=== PATIENT | female | born 1945 | race Caucasian/White ===

== ENCOUNTER 2018-07-06 12:39 | Emergency (ER) | payer MEDICARE, BC ==
[2018-07-06 12:54] VITALS: BP 122/55
--- NOTE | 2018-07-06 13:31 | UC ---
Upper Extremity HPI - HPI Summary HPI Summary: L upper arm and scapular pain w/ soreness, tingling/numbness x4 weeks. has not lost function and denies edwards. does not recall any event w/ lifting or exercise that caused this. intermittent and resolves on its own, returns on its own. no pattern. - History of Current Complaint Chief Complaint: UCUpperExtremity Stated Complaint: L ARM PAIN Time Seen by Provider: 07/06/18 13:12 Hx Obtained From: Patient ?: No Severity Initially: Mild Severity Currently: Mild Pain Intensity: 4 Pain Scale Used: 0-10 Numeric Character: Aching Associated Signs And Symptoms: Positive: Numbness/Tingling. Negative: Swelling , Redness, Bruising, Weakness - Allergies/Home Medications Allergies/Adverse Reactions: Allergies Allergy/AdvReac Type Severity Reaction Status Date / Time alendronate sodium Allergy Unknown Verified 07/06/18 13:05 [From Fosamax] Reaction Details hydrocodone Allergy Nausea And Verified 07/06/18 13:05 Vomiting indomethacin Allergy Unknown Verified 07/06/18 13:05 Reaction Details meclizine Allergy Unknown Verified 07/06/18 13:05 Reaction Details minocycline Allergy Blurred Verified 07/06/18 13:05 Vision mometasone furoate Allergy See Comment Verified 07/06/18 13:05 [From Nasonex] niacin Allergy Unknown Verified 07/06/18 13:05 Reaction Details oxcarbazepine Allergy Unknown Verified 07/06/18 13:05 [From Trileptal] Reaction Details Penicillins Allergy Rash Verified 07/06/18 13:05 primidone Allergy Unknown Verified 07/06/18 13:05 Reaction Details risedronate sodium Allergy Unknown Verified 07/06/18 13:05 [From Actonel] Reaction Details ropinirole [From Requip] Allergy Unknown Verified 07/06/18 13:05 Reaction Details sertraline Allergy Unknown Verified 07/06/18 13:05 Reaction Details Sulfa (Sulfonamide Allergy Difficulty Verified 07/06/18 13:05 Antibiotics) Breathing zolpidem [From Ambien] Allergy Unknown Verified 07/06/18 13:05 Reaction Details Home Medications: Home Medications DOXYcycline CAP(*) [DOXYcycline 100MG CAP(*)] 50 mg PO BID 07/06/18 [History Confirmed 07/06/18] PMH/Surg Hx/FS Hx/Imm Hx - Additional Past Medical History 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 - Surgical History Surgical History: Yes Surgery Procedure, Year, and Place: 1968 TUBAL LIGATION. LEG VEIN SURGERY [id number]. JOHN EYELID SURGERY, 04/13/14, [facility] – [place] - Family History Known Family History: Positive: Cardiac Disease - Social History Alcohol Use: None Substance Use Type: None Smoking Status (MU): Never Smoked Tobacco - Immunization History Most Recent Influenza Vaccination: 2014 Most Recent Tetanus Shot: unk Most Recent Pneumonia Vaccination: 2014 Review of Systems All Other Systems Reviewed And Are Negative: Yes Constitutional: Positive: Negative Respiratory: Positive: Negative Cardiovascular: Positive: Negative Motor: Negative: Decreased ROM, Weakness Musculoskeletal: Positive: Myalgia - L upper arm, Neurological: Positive: Paresthesia - L upper arm and travels down to forearm. Physical Exam Triage Information Reviewed: Yes Appearance: Well-Appearing Vital Signs: Initial Vital Signs Temp 98.3 F 07/06/18 12:47 Pulse 73 07/06/18 12:47 Resp 20 07/06/18 12:47 BP 122/55 07/06/18 12:47 Pulse Ox 100 07/06/18 12:47 Vital Signs Reviewed: Yes Musculoskeletal Exam: Other - R arm unremarkable. Musculoskeletal: Positive: Strength Intact - L arm, ROM Intact - L wrist, L elbow, L shoulder., No Edema, Other: - Muscle tenderness at supraspinatus area. Neg. Lift off test on L side. L muscular tenderness at L deltoid as well. Neurological: Positive: Muscle Tone Normal - L arm Upper Extremity Course/Dx - Course Course Of Treatment: L cervical radiuclopathy affecting the L upper extremity. No loss of function or ROM. Muscular tension pain at supraspinatus and deltoid: L. I reviewed her MRI from the past and there is significant arthritic changes at C5/C6 level which corresponds to her paresthesia/pain. Recommend her f/u w/ neurosurg for ? injections and re-eval. - Differential Dx/Diagnosis Differential Diagnosis/HQI/PQRI: Arthritis, Strain, Sprain Provider Diagnosis: Cervical radiculopathy Discharge - Sign-Out/Discharge Documenting (check all that apply): Patient Departure All imaging exams completed and their final reports reviewed: No Studies - Discharge Plan Condition: Good Disposition: HOME Patient Education Materials: Cervical Radiculopathy (ED) Referrals: Ilana Cooney MD [Medical Doctor] - Additional Instructions: I reviewed your old MRI and there's a chance that you are experiencing nerve symptoms. Please follow up with neurosurgery - Billing Disposition and Condition Condition: GOOD Disposition: Home
== END 2018-07-06 13:33 | disposition home or self-care (01) ==
LOC: UCEAST 12:39
DX: M54.12 Radiculopathy, cervical region (principal); Z88.8 Allergy status to other drugs, medicaments and biological substances; Z88.5 Allergy status to narcotic agent; Z88.6 Allergy status to analgesic agent; Z88.1 Allergy status to other antibiotic agents; Z88.0 Allergy status to penicillin; Z88.2 Allergy status to sulfonamides
CPT/HCPCS: 99211; G0463

== ENCOUNTER 2023-02-24 06:36 | Observation (INO) ==
[2023-02-24] MEDS ORDERED: Ondansetron 4 mg VIAL 2 MG/ML 2 ml VIAL IV ONE (07:49)
[2023-02-24] MEDS ORDERED: Iodixanol (CONTRAST) 320 MG/ML 100 ML SDV IV ONE (07:52)
[2023-02-24 07:58] LABS: ABS Basophils 0.1 10^3/uL (0.0-0.1); ABS Eosinophils 0.1 10^3/uL (0.0-0.5); ABS Lymphocytes 0.9 10^3/uL (1.0-4.8); ABS Monocytes 0.5 10^3/uL (0.0-0.9); ABS Neutrophils 5.9 10^3/uL (1.5-7.6); Eosinophil % 1.4 %; Hematocrit 39.9 % (35-45); Hemoglobin 13.9 g/dL (11.5-14.3); Lymphocyte % 11.8 %; Mean Corpuscular Hemoglobin 30.7 pg (27-33); Mean Corpuscular Hgb Conc 34.8 g/dL (31-36); Mean Corpuscular Volume 88.3 fL (80-97); Mean Platelet Volume 8.2 fL (7.5-11.2); Platelet Count 155 10^3/uL (150-450); Red Blood Count 4.52 10^6/uL (3.63-4.92); Red Cell Distribution Width 12.4 % (12-17); White Blood Count 7.4 10^3/uL (3.8-11.8)
[2023-02-24 08:10] LABS: Activated Partial Thrombo Time 26.3 seconds (26.0-38.0); INR 0.94 (0.83-1.13)
[2023-02-24 08:14] LABS: Albumin 3.9 g/dL (3.2-5.2); Albumin/Globulin Ratio 1.3 (1-3); Calcium 8.4 mg/dL (8.6-10.3); Creatinine, Serum 0.62 mg/dL (0.51-0.95); Direct Bilirubin 0.1 mg/dL (0.03-0.18); Potassium 3.5 mmol/L (3.5-5.0); Total Bilirubin 1.1 mg/dL (0.2-1.0); Total Protein 6.9 g/dL (6.4-8.9); eGFR CKD-EPI 91.7 (>60)
[2023-02-24 08:15] LABS: HDL Cholesterol 52.7 mg/dL
[2023-02-24] MEDS ORDERED: Lorazepam PYXIS KEY PRN (12:41)
[2023-02-24] MEDS ORDERED: LORazepam 2 mg VIAL 1 ml IV PUSH ONE (12:41)
[2023-02-24] MEDS ORDERED: methylPREDNISolone SOD SUCC 125 mg 2 ML VIAL IV ONE (14:05)
[2023-02-24] MEDS ORDERED: Ondansetron 4 mg VIAL 2 MG/ML 2 ml VIAL IV PRN (14:07)
[2023-02-24] MEDS: NS 0.9% 1000 ml BAG 1,000 ML IV SCH ×2 (14:20→21:09)
[2023-02-24] MEDS: Enoxaparin 40 MG/0.4 ML SYR SUBCUT SCH (14:38)
[2023-02-25] MEDS: LIFITEGRAST BOTH EYES SCH ×2 (00:01→09:09)
[2023-02-25] MEDS: NS 0.9% 1000 ml BAG 1,000 ML IV SCH (04:02)
[2023-02-25] MEDS: Aspirin EC 81 mg TAB.EC (enteric coated) PO SCH (09:11)
[2023-02-25] MEDS: Enoxaparin 40 MG/0.4 ML SYR SUBCUT SCH (16:43)
[2023-02-26] MEDS: LIFITEGRAST BOTH EYES SCH ×2 (02:11→09:28)
[2023-02-26] MEDS: Aspirin EC 81 mg TAB.EC (enteric coated) PO SCH (09:16)
[2023-02-26 14:07] VITALS: BP 150/74
[2023-02-26] MEDS: Enoxaparin 40 MG/0.4 ML SYR SUBCUT SCH (16:18)
== END 2023-02-26 16:20 | disposition home or self-care (01) ==
LOC: ED 06:36 → EDHOLD 06:36 → SSU 15:00 → AA 15:37 → SSU 15:38
PROVIDERS: ADMIT Internal Medicine; ATTEND Internal Medicine